=== PATIENT | male | born 1990 | race Two or more races ===

== ENCOUNTER 2023-10-19 06:32 | Emergency (ER) | payer OTHER ==
[~2023-10-19] VITALS: Ht 172.7 cm; Wt 86.4 kg
[2023-10-19 06:55] VITALS: TEMP 98.9
[2023-10-19] MEDS ORDERED: IOHEXOL 350 MG/ML 100 ML VIAL ONE ×2 (07:11→07:43)
[2023-10-19] MEDS ORDERED: SODIUM CHLORIDE 0.9% 100 ML ONE (07:11)
[2023-10-19 07:27] LABS: BASOPHILS % (AUTO) 0.5 % (0.0-2.0); EOSINOPHILS % (AUTO) 1.7 % (1.0-6.0); HEMATOCRIT 39.2 % (41-53); HEMOGLOBIN 13.6 g/dL (13.5-17.5); LYMPHOCYTES # (AUTO) 1.3 K/uL (1.0-4.8); LYMPHOCYTES % (AUTO) 13.5 % (22.0-44.0); MEAN CORPUSCULAR HEMOGLOBIN 28.8 pg (26.0-34.0); MEAN CORPUSCULAR HGB CONC 34.6 G/dL (31.0-37.0); MEAN CORPUSCULAR VOLUME 83 fL (80-100); MONOCYTES # (AUTO) 0.8 K/uL (0.1-1.0); NEUTROPHILS # (AUTO) 7.5 K/uL (1.8-7.7); NEUTROPHILS % (AUTO) 76.3 % (40.0-70.0); PLATELET COUNT (AUTO) 236 K/uL (150-450); RED BLOOD CELL COUNT(AUTO) 4.71 MIL/uL (4.50-5.90); RED CELL DISTRIBUTION WIDTH 14.1 % (11.5-14.5); WHITE BLOOD COUNT (AUTO) 9.8 K/uL (4.5-11.0)
[2023-10-19] MEDS: FAMOTIDINE 20 MG/2 ML VIAL IVP ONE (07:34)
[2023-10-19 07:35] LABS: ANION GAP 11 mmol/L (8-16); CALCIUM, TOTAL 8.6 mg/dL (8.8-10.5); CARBON DIOXIDE 26 mmol/L (22-29); CHLORIDE 102 mmol/L (98-107); CREATININE 0.61 mg/dL (0.60-1.30); GLOMERULAR FILTR. RATE CALC > 60 mL/min (>60); GLUCOSE,RANDOM 109 mg/dL (70-110); POTASSIUM 3.7 mmol/L (3.5-5.1); SODIUM SERUM 139 mmol/L (136-145); UREA NITROGEN, BLOOD 9 mg/dL (7-18)
[2023-10-19] MEDS: KETOROLAC TROMETHAMINE 30 MG/ML VIAL IVP ONE (07:35)
[2023-10-19] MEDS: ACETAMINOPHEN 500 MG TABLET PO ONE (07:35)
[2023-10-19] MEDS: ONDANSETRON HCL 4 MG/2 ML VIAL IVP ONE (07:35)
[2023-10-19] MEDS: SODIUM CHLORIDE 0.9% 1,000 ML IV ONE (07:36)
[2023-10-19 07:45] LABS: LACTIC ACID 0.8 mmol/L (0.4-2.0)
[2023-10-19 07:52] LABS: ALANINE AMINOTRANSFERASE 220 U/L (12-78); ALBUMIN 3.4 g/dL (3.4-5.0); ALKALINE PHOSPHATASE 78 U/L (46-116); ASPARTATE AMINOTRANSFERASE 93 U/L (15-37); BILIRUBIN,TOTAL 0.7 mg/dL (0.1-1.0); LIPASE 21 U/L (16-77); TOTAL PROTEIN, SERUM 7.7 g/dL (6.4-8.2)
[2023-10-19 08:01] LABS: COVID AG,FIA SOURCE NASAL SWAB
[2023-10-19] MEDS: DiphenhydrAMINE HCL 50 MG/ML VIAL IVP ONE (08:15)
[2023-10-19] MEDS: METOCLOPRAMIDE HCL 5 MG/ML 2 ML VIAL IVP ONE (08:15)
[2023-10-19 08:20] VITALS: BP 120/77; PULSE 66; RESP 18
[2023-10-19 08:22] LABS: SARS-COV2 (COVID) ANTIGEN,FIA Negative (Negative)
[2023-10-19 08:44] LABS: APPEARANCE,URINE CLEAR (CLEAR); BILIRUBIN,URINE NEGATIVE (NEGATIVE); COLOR,URINE LIGHT YELLOW (YELLOW); GLUCOSE, URINE (UA) NEGATIVE (NEGATIVE); KETONES,URINE NEGATIVE (NEGATIVE); LEUKOCYTE ESTERASE ,URINE NEGATIVE (NEGATIVE); NITRATE,URINE NEGATIVE (NEGATIVE); OCCULT BLOOD,URINE NEGATIVE (NEGATIVE); PROTEIN,URINE NEGATIVE (NEGATIVE); SPECIFIC GRAVITIY, URINE 1.016 (1.003-1.030)
== END 2023-10-19 11:19 ==
LOC: EMS 06:34
DX: R10.9 Unspecified abdominal pain (principal); Z20.822 Contact with and (suspected) exposure to COVID-19
CPT/HCPCS: 99285; 74177; 96374; 76705; 96375; 96361; 87426; 80053; 81003; 83605; 83690; 85025; 36415; J1200; J3490; J1885; J2765; J2405; Q9967; J7050